=== PATIENT | male | born 2005 | race Caucasian/White ===

== ENCOUNTER 2024-12-09 14:54 | Outpatient (CLI) | payer BC, SELFPAY ==
--- NOTE | ~2024-12-09 | US_ITS ---
Thyroid ultrasound. Clinical History: Iodine deficiency goiter Findings: Real-time sonography of the thyroid gland was performed. The right lobe measures 5.1 x 1.4 x 1.3 cm. The left lobe measures 4.2 x 1.1 x 1.4 cm. The isthmus is 5 mm in AP diameter. 6 mm probable minimally complex cystic nodule present at the right upper pole. Impression: No significant abnormality seen.. Reviewed, dictated and finalized at location . Impression: No significant abnormality seen..
== END 2024-12-09 14:55 | disposition home or self-care (01) ==
PROVIDERS: PCP Internal Medicine; Visit Provider Internal Medicine
DX: E01.0 Iodine-deficiency related diffuse (endemic) goiter (principal)
CPT/HCPCS: 76536